=== PATIENT | male | born 1970 | race Caucasian/White ===

== ENCOUNTER 2019-04-01 23:54 | Emergency (ER) | payer SELFPAY ==
[~2019-04-01] VITALS: Ht 177.8 cm; Wt 106.8 kg
[2019-04-02] MEDS ORDERED: NS IV 1000 ML 1,000 ML IV STA (00:22)
[2019-04-02] MEDS ORDERED: ONDANSETRON 4 MG/2 ML (SDV) Z0FRAN IVP STA (00:22)
[2019-04-02] MEDS ORDERED: KETOROLAC 30 MG/ML VIAL IVP STA (00:22)
--- NOTE | 2019-04-02 00:38 | ED Abdominal Pain ---
General Stated Complaint: PASSING KIDNEY STONES Source of Information: Patient History of Present Illness Date Seen by Provider: Apr 02, 2019 Time Seen by Provider: 00:38 Initial Comments 48-year-old male presenting with complaints of right flank pain. He has history of kidney stones and states that this feels similar to when his past stones in the past. He had severe pain for over 3 hours at home and it was not improving so he finally drove himself here to the ER. He had pain with urination in the emergency department on arrival to the ER in past 9 stones in the toilet. He said that there was some mucus and blood clots with the urine. He denies any fever or chills. He has had some vomiting and loose stool with the kidney stones and severe pain. He has had kidney stones in the past and it has always been on the right side. He thought that by continuing to drink plenty of fluids and cranberry juice he would not have them again that tonight he had sudden onset of pain and the pain kept getting worse. He has seen Dr. Callahan out [facility] in the past. Allergies and Home Medications Allergies Coded Allergies: No Known Allergies (Verified Allergy, Unknown, 05/08/08) Home Medications Hydrocodone Bit/Acetaminophen 1 Tab Tab, 1 EACH PO Q6H PRN for PAIN-SEVERE Prescribed by: ALLYSON WEBSTER on 04/02/19 0233 Patient Home Medication List Home Medication List Reviewed: Yes Review of Systems Review of Systems Constitutional: No chills, No fever EENTM: No Symptoms Reported Respiratory: No Symptoms Reported Cardiovascular: No Symptoms Reported Gastrointestinal: Nausea (when the pain is severe), Vomiting Genitourinary: Flank Pain (right side), Hematuria Musculoskeletal: no symptoms reported Skin: no symptoms reported Psychiatric/Neurological: No Symptoms Reported Endocrine: No Symptoms Reported Past [id number]-Hwfhgi-Nfhhyu Hx Past Med/Social Hx: Reviewed Nursing Past Med/Soc Hx Patient Social History Recent Foreign Travel: No Contact w/Someone Who Travel: No Past Medical History Reproductive Disorders: No Physical Exam Vital Signs Vital Signs - First Documented 04/02/19 04/02/19 00:26 02:22 Temp 36.0 Pulse 72 Resp 16 B/P (MAP) 156/89 (111) Pulse Ox 96 O2 Delivery Room Air Capillary Refill : Height/Weight/BMI Height: '" Weight: lbs. oz. kg; BMI Method: General Appearance: WD/WN, no apparent distress HEENT: PERRL/EOMI, pharynx normal Neck: non-tender, full range of motion, supple, normal inspection Respiratory: chest non-tender, lungs clear, normal breath sounds Cardiovascular: normal peripheral pulses, regular rate, rhythm Gastrointestinal: normal bowel sounds, non tender, soft, no pulsatile mass Extremities: normal range of motion, non-tender, normal capillary refill Back: no CVA tenderness Neurologic/Psychiatric: alert, normal mood/affect, oriented x 3 Skin: normal color, warm/dry Progress/Results/Core Measures Results/Orders Lab Results Laboratory Tests Test 04/02/19 00:00 04/02/19 00:26 Range/Units Urine Color YELLOW Urine Clarity SL CLOUDY Urine pH 7.0 5-9 Urine Specific [place] 1.010 L 1.016-1.022 Urine Protein TRACE H NEGATIVE Urine Glucose (UA) NEGATIVE NEGATIVE Urine Ketones 1+ H NEGATIVE Urine Nitrite NEGATIVE NEGATIVE Urine Bilirubin 1+ H NEGATIVE Urine Urobilinogen 0.2 NORMAL MG/DL Urine Leukocyte Esterase TRACE H NEGATIVE Urine RBC (Auto) 3+ H NEGATIVE Urine RBC >100 H /HPF Urine WBC 2-5 /HPF Urine Squamous Epithelial Cells 5-10 /HPF Urine Crystals PRESENT H /LPF Urine Calcium Oxalate Crystals FEW H /LPF Urine Bacteria NEGATIVE /HPF Urine Casts NONE /LPF Urine Mucus LARGE H /LPF Urine Culture Indicated NO White Blood Count 7.1 4.3-11.0 10^3/uL Red Blood Count 4.80 4.35-5.85 10^6/uL Hemoglobin 15.8 13.3-17.7 G/DL Hematocrit 44 40-54 % Mean Corpuscular Volume 93 80-99 FL Mean Corpuscular Hemoglobin 33 25-34 PG Mean Corpuscular Hemoglobin Concent 36 32-36 G/DL Red Cell Distribution Width 12.0 10.0-14.5 % Platelet Count 242 130-400 10^3/uL Mean Platelet Volume 11.1 H 7.4-10.4 FL Neutrophils (%) (Auto) 82 H 42-75 % Lymphocytes (%) (Auto) 11 L 12-44 % Monocytes (%) (Auto) 7 0-12 % Eosinophils (%) (Auto) 0 0-10 % Basophils (%) (Auto) 0 0-10 % Neutrophils # (Auto) 5.9 1.8-7.8 X 10^3 Lymphocytes # (Auto) 0.7 L 1.0-4.0 X 10^3 Monocytes # (Auto) 0.5 0.0-1.0 X 10^3 Eosinophils # (Auto) 0.0 0.0-0.3 10^3/uL Basophils # (Auto) 0.0 0.0-0.1 10^3/uL Sodium Level 139 135-145 MMOL/L Potassium Level 3.3 L 3.6-5.0 MMOL/L Chloride Level 101 98-107 MMOL/L Carbon Dioxide Level 25 21-32 MMOL/L Anion Gap 13 5-14 MMOL/L Blood Urea Nitrogen 13 7-18 MG/DL Creatinine 1.14 0.60-1.30 MG/DL Estimat Glomerular Filtration Rate > 60 BUN/Creatinine Ratio 11 Glucose Level 154 H 70-105 MG/DL Calcium Level 9.5 8.5-10.1 MG/DL Corrected Calcium 9.3 8.5-10.1 MG/DL Total Bilirubin 0.5 0.1-1.0 MG/DL Aspartate Amino Transf (AST/SGOT) 41 H 5-34 U/L Alanine Aminotransferase (ALT/SGPT) 68 H 0-55 U/L Alkaline Phosphatase 81 40-136 U/L Total Protein 6.9 6.4-8.2 GM/DL Albumin 4.2 3.2-4.5 GM/DL Lipase 48 8-78 U/L My Orders Orders - ALLYSON WEBSTER MD Comprehensive Metabolic Panel (04/02/19 00:22) Lipase (04/02/19:22) Ua Culture If Indicated (04/02/19 00:22) Ed Iv/Invasive Line Start (04/02/19:22) Cbc With Automated Diff (04/02/19:22) Ns Iv 1000 Ml (Sodium Chloride 0.9%) (04/02/19:22) Ketorolac Injection (Toradol Injection) (04/02/19 00:22) Ondansetron Injection (Zofran Injectio (04/02/19 00:22) Rx-Hydrocodone/Apap 5-325 Mg (Rx-Vicodin (04/02/19 02:45) Medications Given in ED Current Medications Medications Dose Ordered Sig/Paco Route Start Time Stop Time Status Last Admin Dose Admin Acetaminophen/ Hydrocodone Bitart 1 ea Q6H PRN PO 04/02/19 02:45 04/02/19 02:46 DC 04/02/19 02:43 1 EA Vital Signs/I&O 04/02/19 04/02/19 00:26 02:22 Temp 36.0 36.0 Pulse 72 72 Resp 16 B/P (MAP) 156/89 (111) 156/89 (111) Pulse Ox 96 96 O2 Delivery Room Air Room Air Progress Progress Note #1: Progress Note Check labs and urinalysis. Give IV fluids for hydration. Toradol for pain and Zofran for nausea. Progress Note #2: Progress Note As the pain had improved when he passed stones on arriving to the emergency Department he had requested to hold off on the CT scan. His CBC and chemistry were stable without signs of renal dysfunction. He was drinking fluids without difficulty. While waiting to provide a urine specimen he was continuing to feel better. When he did provide a urine specimen it hasn't more stones present. The urinalysis did not demonstrate any signs of infection. He did pass further stones while waiting for the UA results. Will send him with a take home pack of hydrocodone in case he had severe pain return. We will also send a prescription for a few hydrocodone in case he had more pain. Encouraged follow-up with Dr. Callahan in case he needed to have urology intervention. Counseled on follow-up and return precautions. Departure Impression Primary Impression: Renal colic on right side Additional Impression: Kidney stone on right side Disposition: HOME, SELF-CARE Condition: Stable Departure-Patient Inst. Decision time for Depature: 02:13 Referrals: NO,LOCAL PHYSICIAN (PCP) Primary Care Physician JESSE CALLAHAN MD Patient Instructions: Renal Colic (DC), Kidney Stone Diet Add. Discharge Instructions: Stay well hydrated and drink plenty of water Follow up with Dr. Callahan for continued Kidney stone concerns Scripts Hydrocodone Bit/Acetaminophen (Hydrocodone/Acetaminophen 5/325mg Tablet) 1 Tab Tab 1 EACH PO Q6H PRN for PAIN-SEVERE MDD 10 for 3 Days, #12 TAB 0 Refills Prov: ALLYSON WEBSTER MD 04/02/19 ALLYSON WEBSTER MD Apr 02, 2019 00:38
[2019-04-02 00:40] LABS: HEMATOCRIT 44 % (40-54); HEMOGLOBIN 15.8 G/DL (13.3-17.7); MEAN CORPUSCULAR HEMOGLOBIN 33 PG (25-34); MEAN CORPUSCULAR VOLUME 93 FL (80-99); WHITE BLOOD COUNT 7.1 10^3/uL (4.3-11.0)
[2019-04-02 00:41] LABS: BASOPHILS % (AUTO) 0 % (0-10); EOSINOPHILS % (AUTO) 0 % (0-10); LYMPHOCYTES # (AUTO) 0.7 X 10^3 (1.0-4.0); LYMPHOCYTES % (AUTO) 11 % (12-44); MEAN CORPUSCULAR HGB CONC 36 G/DL (32-36); MEAN PLATELET VOLUME 11.1 FL (7.4-10.4); MONOCYTES # (AUTO) 0.5 X 10^3 (0.0-1.0); MONOCYTES % (AUTO) 7 % (0-12); NEUTROPHILS # (AUTO) 5.9 X 10^3 (1.8-7.8); NEUTROPHILS % (AUTO) 82 % (42-75); PLATELET COUNT 242 10^3/uL (130-400)
[2019-04-02 01:03] LABS: CHLORIDE 101 MMOL/L (98-107); POTASSIUM 3.3 MMOL/L (3.6-5.0); SODIUM 139 MMOL/L (135-145)
[2019-04-02 01:04] LABS: ALANINE AMINOTRANSFERASE 68 U/L (0-55); ALBUMIN 4.2 GM/DL (3.2-4.5); ALKALINE PHOSPHATASE 81 U/L (40-136); BILIRUBIN,TOTAL 0.5 MG/DL (0.1-1.0); BUN/CREATININE RATIO 11; CALCIUM 9.5 MG/DL (8.5-10.1); CARBON DIOXIDE 25 MMOL/L (21-32); CREATININE SERUM 1.14 MG/DL (0.60-1.30); GFR ESTIMATED > 60; GLUCOSE 154 MG/DL (70-105); LIPASE 48 U/L (8-78); TOTAL PROTEIN 6.9 GM/DL (6.4-8.2)
[2019-04-02 02:01] LABS: CLARITY,URINE SL CLOUDY; COLOR,URINE YELLOW; GLUCOSE, URINE (UA) NEGATIVE (NEGATIVE); KETONES,URINE 1+ (NEGATIVE); PROTEIN,URINE TRACE (NEGATIVE)
[2019-04-02 02:02] LABS: BACTERIA,URINE NEGATIVE /HPF; BILIRUBIN,URINE 1+ (NEGATIVE); CALCIUM OXALATE CRYSTALS,UR FEW /LPF; LEUKOCYTE ESTERASE ,URINE TRACE (NEGATIVE); NITRITE,URINE NEGATIVE (NEGATIVE); RBC,URINE >100 /HPF; UROBILINOGEN,URINE 0.2 MG/DL (NORMAL)
[2019-04-02 02:22] VITALS: BP 156/89
[2019-04-02] MEDS ORDERED: ACHD5005 PO (02:33)
[2019-04-02] MEDS ORDERED: RX-HYDROCODONE/APAP 5/325 MG #4 TAB PK PO PRN (02:45)
== END 2019-04-02 02:43 | disposition home or self-care (01) ==
LOC: EDUNIT# 23:54 → ER FS 23:56
DX: N20.0 Calculus of kidney (principal)
CPT/HCPCS: 36415; 80053; 81000; 83690; 85025; 96361; 96374; 96375